=== PATIENT | female | born 1990 | race Hispanic/Latino ===

== ENCOUNTER 2017-04-27 17:51 | Emergency (ER) | payer OTHER, SELFPAY ==
[2017-04-27] MEDS ORDERED: Ketorolac Tromethamine 60 MG/2 ML VIAL ONE (19:11)
[2017-04-27] MEDS ORDERED: Cyclobenzaprine 10 MG TAB ONE (19:12)
--- NOTE | 2017-04-27 19:29 | RAD ---
LUMBAR SPINE THREE VIEW 04/27/17 HISTORY: Fall, low midline back pain. No acute fracture. No malalignment. No significant listhesis. Phleboliths in the pelvis. IMPRESSION: No acute fracture or malalignment. POS: [facility]
== END 2017-04-27 19:57 | disposition home or self-care (01) ==
LOC: SCSER 17:51
DX: S39.012A Strain of muscle, fascia and tendon of lower back, initial encounter (principal); F41.9 Anxiety disorder, unspecified; F17.210 Nicotine dependence, cigarettes, uncomplicated; Z79.899 Other long term (current) drug therapy; W01.0XXA Fall on same level from slipping, tripping and stumbling without subsequent striking against object, initial encounter; Y93.02 Activity, running
CPT/HCPCS: 72100; 96372; J1885

== ENCOUNTER 2017-07-05 13:30 | Emergency (ER) | payer OTHER, SELFPAY ==
[2017-07-05] MEDS ORDERED: diphenhydrAMINE 50 MG/ML VIAL ONE (13:54)
[2017-07-05] MEDS ORDERED: Metoclopramide HCl 10 MG/2 ML VIAL ONE (13:55)
[2017-07-05] MEDS ORDERED: Ketorolac Tromethamine 30 MG/ML VIAL ONE (14:25)
--- NOTE | 2017-07-05 14:40 | CT ---
CT BRAIN WITHOUT CONTRAST: HISTORY: Headache, migraine. COMPARISON: 05/21/2016 FINDINGS: No evidence of infarct, hemorrhage, midline shift, or abnormal extraaxial fluid collections is seen. The ventricular size is normal, and the basilar cisterns are patent. The bony calvarium is intact. The visualized paranasal sinuses and mastoid air cells are well aerated. IMPRESSION: No CT evidence of acute intracranial process. POS: [facility]
== END 2017-07-05 15:20 | disposition home or self-care (01) ==
LOC: SCSER 13:30
DX: R51 Headache (principal); F41.9 Anxiety disorder, unspecified; F17.210 Nicotine dependence, cigarettes, uncomplicated
CPT/HCPCS: 70450; 96361; 96374; 96375; J1200; J1885; J2765

== ENCOUNTER 2017-07-26 16:10 | Emergency (ER) | payer SELFPAY ==
--- NOTE | 2017-07-26 18:21 | RAD ---
2 VIEWS CHEST: Date: 07/26/17 PROVIDED CLINICAL HISTORY: Cough. FINDINGS: Comparison with 03/04/13. Cardiac and mediastinal silhouette are within normal limits. Lungs appear clear. No pleural fluid or pneumothorax apparent. IMPRESSION: No evidence for an acute cardiopulmonary process. POS: [facility]
== END 2017-07-26 17:55 | disposition home or self-care (01) ==
LOC: ERS 16:10
DX: J06.9 Acute upper respiratory infection, unspecified (principal); G43.909 Migraine, unspecified, not intractable, without status migrainosus; F41.9 Anxiety disorder, unspecified; F17.210 Nicotine dependence, cigarettes, uncomplicated; Z79.899 Other long term (current) drug therapy
CPT/HCPCS: 71046

== ENCOUNTER 2018-06-07 17:51 | Emergency (ER) | payer MEDICAID, SELFPAY ==
--- NOTE | 2018-06-07 18:38 | RAD ---
FEXAM: Portable chest PROVIDED CLINICAL HISTORY: Dyspnea COMPARISON: 12/30/2013 FINDINGS: Cardiac and mediastinal silhouette is within normal limits. No focal consolidation, pleural fluid or pneumothorax evident. IMPRESSION: No evidence for an acute cardiopulmonary process.
== END 2018-06-07 19:44 | disposition home or self-care (01) ==
LOC: ERS 17:51
DX: F41.9 Anxiety disorder, unspecified (principal); F17.210 Nicotine dependence, cigarettes, uncomplicated
CPT/HCPCS: 71045; 93005

== ENCOUNTER 2018-06-09 08:42 | Emergency (ER) | payer MEDICAID ==
[2018-06-09 09:25] LABS: #Basophils 0.1 thou/uL (0.0-0.2); #Lymphocytes 0.9 thou/uL (1.20-3.40); #Monocytes 0.5 thou/uL (0.11-0.59); #Neutrophils 5.2 thou/uL (1.40-6.50); %Basophils 0.8 % (0.0-1.0); %Eosinophils 0.7 % (0.0-10.0); %Lymphocytes 12.9 % (21.0-51.0); %Monocytes 7.3 % (0.0-10.0); %Neutrophils 78.4 % (42.0-75.0); Hemoglobin 13.2 g/dL (12.0-16.0); Mean Corpuscular Hemoglobin 32.6 pg (27.0-31.0); Mean Corpuscular Volume 95.8 fL (78.0-98.0); Mean Platelet Volume 8.2 fL (7.4-10.4); Platelet Count 225 thou/uL (130-400); RBC Distribution Width 11.9 % (11.5-14.5); Red Blood Cell (RBC) Count 4.04 mill/uL (4.20-5.40); White Blood Cell (WBC) Count 6.7 thou/uL (4.8-10.8)
[2018-06-09 09:41] LABS: ALT (SGPT) 12 U/L (8-55); AST (SGOT) 14 U/L (5-34); Albumin 4.7 g/dL (3.5-5.0); Alkaline Phosphatase 49 U/L (40-150); Anion Gap 12 mmol/L (10-20); BUN (Urea Nitrogen) 14 mg/dL (7.0-18.7); Bilirubin, Total 1.2 mg/dL (0.2-1.2); Calc. Creatinine Clearance 0 mL/min (70-130); Calcium 9.5 mg/dL (7.8-10.44); Carbon Dioxide 24 mmol/L (22-29); Chloride 106 mmol/L (98-107); Estimated GFR-MDRD Greater than 90; Glucose 88 mg/dL (70-105); Potassium 3.4 mmol/L (3.5-5.1); Protein, Total 7.7 g/dL (6.0-8.3); Sodium 139 mmol/L (136-145)
[2018-06-09] MEDS ORDERED: Lidocaine Viscous Sol 2% 15 ml UD Cup ONE (09:45)
[2018-06-09] MEDS ORDERED: Mag-Al 1200 mg/1200 mg/30 ML UDCUP ONE (09:45)
[2018-06-09] MEDS ORDERED: Pantoprazole 40 MG VIAL ONE (09:45)
[2018-06-09] MEDS ORDERED: Sucralfate 1 GM/10 ML UDCUP ONE (09:46)
[2018-06-09 09:52] LABS: Bilirubin Small (Negative); Blood, Urine Large (Negative); Clarity CLOUDY (Clear); Glucose, Urine (Dipstick) Negative (Negative); Leukocyte Negative (Negative); Nitrite Negative (Negative); Protein, Urine (Dipstick) 30 mg/dL (Neg-Trace); Specific Gravity, Urine 1.038 (1.002-1.036); Urobilinogen 0.2 mg/dL (0.2-1.0)
[2018-06-09 09:55] LABS: Bacteria/HPF 1+ HPF (None Seen); Yeast-AUWi Flag 23.8 (0-25.0)
[2018-06-09 09:56] LABS: Pathc Cast-AUWi Flag 2.72 (0-2.49); Pregnancy Test - Urine (BHCG) Negative (Negative); Pregu Control Background? CLEAR/WHITE (CLR/WHITE); Pregu Control Bar Appear? YES (CONTROL BAR); Specific Gravity 1.038 (1.002-1.036)
[2018-06-09 10:04] LABS: Hyaline Casts/LPF 0-3 HYALINE CAST LPF (0-3 Hyaline); Other Casts/LPF None Seen LPF (0-3 Hyaline)
--- NOTE | 2018-06-09 10:49 | ULT ---
ULTRASOUND GALLBLADDER RIGHT UPPER QUADRANT: Date: 06/09/18 HISTORY: Epigastric pain with eating. COMPARISON: None. FINDINGS: Real-time Stuart scale and color evaluation of the right upper quadrant of the abdomen was performed. The pancreas, aorta, and IVC are normal. Gallbladder is normal. Hepatic echotexture is normal. Common bile duct is normal. Liver measures 11.8 cm in length. Right kidney measures 9.2 x 5.4 x 5.9 cm, without mass, hydronephro sis, or abnormal calcifications. Sonographic Mccarthy's sign is negative. IMPRESSION: Normal exam. POS: [facility]
== END 2018-06-09 11:41 | disposition home or self-care (01) ==
LOC: ERS 08:42
DX: R10.13 Epigastric pain (principal); F32.9 Major depressive disorder, single episode, unspecified; F41.9 Anxiety disorder, unspecified; G43.909 Migraine, unspecified, not intractable, without status migrainosus; Z87.891 Personal history of nicotine dependence; K25.9 Gastric ulcer, unspecified as acute or chronic, without hemorrhage or perforation
CPT/HCPCS: 36415; 76705; 80053; 81003; 81015; 81025; 83690; 85025; 96361; 96374; C9113

== ENCOUNTER 2018-09-12 14:30 | Emergency (ER) | payer MEDICAID, SELFPAY ==
[2018-09-12 15:01] LABS: #Eosinphils 0.1 thou/uL (0.0-0.7); #Lymphocytes 0.3 thou/uL (1.20-3.40); #Monocytes 0.7 thou/uL (0.11-0.59); #Neutrophils 12.1 thou/uL (1.40-6.50); %Basophils 0.3 % (0.0-1.0); %Eosinophils 0.6 % (0.0-10.0); %Lymphocytes 2.6 % (21.0-51.0); %Monocytes 5.2 % (0.0-10.0); %Neutrophils 91.3 % (42.0-75.0); Mean Corpuscular HGB CONC 32.6 g/dL (32.0-36.0); Mean Corpuscular Hemoglobin 31.8 pg (27.0-31.0); Mean Corpuscular Volume 97.3 fL (78.0-98.0); Mean Platelet Volume 7.4 fL (7.4-10.4); Platelet Count 219 thou/uL (130-400); RBC Distribution Width 11.9 % (11.5-14.5); Red Blood Cell (RBC) Count 3.76 mill/uL (4.20-5.40); White Blood Cell (WBC) Count 13.3 thou/uL (4.8-10.8)
--- NOTE | 2018-09-12 15:07 | RAD ---
SINGLE VIEW CHEST: Date: 09/12/18 COMPARISON: 06/07/18. HISTORY: Chest pain. FINDINGS: Single view of the chest shows a normal sized cardiomediastinal silhouette. There is no evidence of c onsolidation, mass, or pleural effusion. The bones are unremarkable. IMPRESSION: No evidence of acute cardiopulmonary disease. POS: [facility]
[2018-09-12 15:22] LABS: ALT (SGPT) 10 U/L (8-55); AST (SGOT) 12 U/L (5-34); Albumin 3.9 g/dL (3.5-5.0); Alkaline Phosphatase 49 U/L (40-150); Anion Gap 12 mmol/L (10-20); BHCG - Serum Negative (NEGATIVE); BUN (Urea Nitrogen) 6 mg/dL (7.0-18.7); Bilirubin, Total 0.8 mg/dL (0.2-1.2); CK (CPK) 65 U/L (29-168); Calc. Creatinine Clearance 0 mL/min (70-130); Calcium 8.6 mg/dL (7.8-10.44); Carbon Dioxide 23 mmol/L (22-29); Chloride 107 mmol/L (98-107); Estimated GFR-MDRD Greater than 90; Glucose 92 mg/dL (70-105); Lipase 7 U/L (8-78); Potassium 3.7 mmol/L (3.5-5.1); Pregs Control Background? CLEAR/WHITE (CLR/WHITE); Pregs Control Bar Appear? YES (CONTROL BAR); Protein, Total 5.9 g/dL (6.0-8.3); Sodium 138 mmol/L (136-145)
[2018-09-12] MEDS ORDERED: Acetaminophen 500 MG TAB ONE (15:59)
== END 2018-09-12 16:04 | disposition home or self-care (01) ==
LOC: ERS 14:30
DX: R07.2 Precordial pain (principal); F41.9 Anxiety disorder, unspecified; F32.9 Major depressive disorder, single episode, unspecified; F17.210 Nicotine dependence, cigarettes, uncomplicated; Z71.6 Tobacco abuse counseling
CPT/HCPCS: 36415; 71045; 80053; 82550; 83690; 84484; 84703; 85025; 85379; 93005; 99406

== ENCOUNTER 2018-10-20 08:21 | Emergency (ER) | payer SELFPAY | END 2018-10-20 09:16 | disposition home or self-care (01) | LOC: SCSER 08:21 | DX: J03.90 Acute tonsillitis, unspecified (principal); Z71.6 Tobacco abuse counseling; F41.9 Anxiety disorder, unspecified; F32.9 Major depressive disorder, single episode, unspecified; F17.210 Nicotine dependence, cigarettes, uncomplicated | CPT/HCPCS: 87081; 87430; 99406 ==

== ENCOUNTER 2019-05-28 11:48 | Emergency (ER) | payer SELFPAY | END 2019-05-28 13:48 | disposition home or self-care (01) | LOC: ERS 11:48 | DX: K64.4 Residual hemorrhoidal skin tags (principal); G43.909 Migraine, unspecified, not intractable, without status migrainosus; F41.9 Anxiety disorder, unspecified; F32.9 Major depressive disorder, single episode, unspecified; F17.210 Nicotine dependence, cigarettes, uncomplicated | CPT/HCPCS: 82274; 99281 ==